=== PATIENT | male | born 1960 | race Two or more races ===

== ENCOUNTER 2021-10-01 04:29 | Inpatient (IN) | payer OTHER ==
[2021-10-01 04:41] VITALS: BMI 46.0
[2021-10-01 06:07] LABS: BASO % 0.4 % (0-2.0); EOS % 2.2 % (0-4.5); HEMOGLOBIN 13.6 GM/dL (11.7-16.9); LYMPH % 21.4 % (8-40); MCH 27.3 pg (25.7-33.7); MCHC 33.1 g/dl (32.0-35.9); MEAN CELL VOLUME 82.3 fl (80-96); MEAN PLT VOLUME 8.2 fl (7.5-11.1); MONO % 6.2 % (3.8-10.2); NEUT % 69.8 % (42.8-82.8); PLATELET COUNT 229 10^3/uL (134-434); RBC 4.97 M/mm3 (4.00-5.60); RDW 14.9 % (11.9-15.9); WHITE BLOOD COUNT 9.6 K/mm3 (4.0-10.0)
[2021-10-01 06:27] LABS: ALBUMIN 3.6 g/dl (3.4-5.0); BLOOD UREA NITROGEN 18.8 mg/dL (7-18)
[2021-10-01 06:30] LABS: CREATININE 1.1 mg/dL (0.55-1.3)
[2021-10-01 06:32] LABS: BILIRUBIN,TOTAL 0.3 mg/dL (0.2-1); TOT PROT 6.5 g/dl (6.4-8.2)
[2021-10-01 06:48] LABS: INR 1.05 (0.83-1.09); PROTHROMBIN TIME (PATIENT) 12.1 SEC (9.7-13.0)
[2021-10-01 06:51] LABS: ACTIVATED PTT 32.6 SECONDS (25.2-36.5)
[2021-10-01] MEDS ORDERED: PANTOPRAZOLE SODIUM 40 MG VIAL IVPUSH SCH (10:30)
[2021-10-01] MEDS ORDERED: PANTOPRAZOLE SODIUM 40 MG VIAL ONE (10:37)
[2021-10-01 13:06] LABS: HEMATOCRIT 37.5 % (35.4-49); HEMOGLOBIN 12.5 GM/dL (11.7-16.9); MCH 27.3 pg (25.7-33.7); MCHC 33.3 g/dl (32.0-35.9); MEAN CELL VOLUME 81.8 fl (80-96); MEAN PLT VOLUME 7.8 fl (7.5-11.1); PLATELET COUNT 216 10^3/uL (134-434); RBC 4.58 M/mm3 (4.00-5.60); WHITE BLOOD COUNT 8.5 K/mm3 (4.0-10.0)
[2021-10-01] MEDS: LOSARTAN POTASSIUM 50 MG TABLET PO SCH (16:30)
[2021-10-01 20:37] LABS: HEMOGLOBIN 11.9 GM/dL (11.7-16.9); MCH 27.4 pg (25.7-33.7); MCHC 33.2 g/dl (32.0-35.9); MEAN CELL VOLUME 82.6 fl (80-96); MEAN PLT VOLUME 7.9 fl (7.5-11.1); PLATELET COUNT 203 10^3/uL (134-434); RBC 4.35 M/mm3 (4.00-5.60); RDW 14.7 % (11.9-15.9); WHITE BLOOD COUNT 10.3 K/mm3 (4.0-10.0)
[2021-10-01] MEDS ORDERED: LATANOPROST 0.005% OPHTH SOLN 2.5ML BOTTLE OU SCH (22:00)
[2021-10-02 09:00] VITALS: BP 154/87; PULSE 84; TEMP 98.5
[2021-10-02 09:38] LABS: BASO % 0.2 % (0-2.0); EOS % 1.3 % (0-4.5); HEMATOCRIT 34.9 % (35.4-49); HEMOGLOBIN 11.7 GM/dL (11.7-16.9); LYMPH % 20.1 % (8-40); MCH 27.7 pg (25.7-33.7); MCHC 33.5 g/dl (32.0-35.9); MEAN CELL VOLUME 82.6 fl (80-96); MEAN PLT VOLUME 8.4 fl (7.5-11.1); MONO % 4.2 % (3.8-10.2); NEUT % 74.2 % (42.8-82.8); PLATELET COUNT 208 10^3/uL (134-434); RBC 4.23 M/mm3 (4.00-5.60); RDW 14.8 % (11.9-15.9)
[2021-10-02 09:49] LABS: CALCIUM 8.8 mg/dL (8.5-10.1)
[2021-10-02 09:50] LABS: ALBUMIN 3.3 g/dl (3.4-5.0); BLOOD UREA NITROGEN 15.4 mg/dL (7-18); MAGNESIUM 2.4 mg/dL (1.8-2.4)
[2021-10-02 09:54] LABS: BILIRUBIN,TOTAL 0.6 mg/dL (0.2-1); TOT PROT 5.9 g/dl (6.4-8.2)
[2021-10-02] MEDS: LOSARTAN POTASSIUM 50 MG TABLET PO SCH (10:45)
[2021-10-02 11:52] LABS: RETICULOCYTES 1.28 % (0.5-1.5)
== END 2021-10-02 14:51 | disposition home or self-care (01) | DRG 394 ==
LOC: JER 04:29 → JERBED 07:39 → J6S 16:01
PROVIDERS: ADMIT Internal Medicine; ATTEND Internal Medicine
DX: K64.8 Other hemorrhoids (principal); K62.5 Hemorrhage of anus and rectum; I10 Essential (primary) hypertension; M17.0 Bilateral primary osteoarthritis of knee
CPT/HCPCS: 0241U-QW; 36415; 74177-TC; 80053; 82272; 82728; 83036; 83540; 83550; 83735; 85025; 85027; 85045; 85610; 85730; 86850; 86900; 86901; 93005; 93010; 99285-25; Q9967